=== PATIENT | male | born 1975 | race Caucasian/White ===

== ENCOUNTER 2019-08-01 06:40 | Emergency (ER) | payer SELFPAY ==
[~2019-08-01] VITALS: Ht 162.6 cm; Wt 77.1 kg
[2019-08-01 06:43] VITALS: BP 197/123
--- NOTE | 2019-08-01 06:50 | NUR ---
came in with c/o pain on his scrotum, developed when hes carrying heavy objects, for 3 weeks now.
--- NOTE | 2019-08-01 07:05 | NUR ---
seen and examined by Dr. Barroso
[2019-08-01] MEDS ORDERED: NACL 0.9% 1,000 ML IV ONE (07:15)
[2019-08-01] MEDS ORDERED: KETOROLAC 15 MG/ML VIAL IVP ONE (07:15)
--- NOTE | 2019-08-01 07:17 | NUR ---
receiced bedside report from GIACOMO Salazar for continuation of care
--- NOTE | 2019-08-01 07:19 | NUR ---
lab at bedside
[2019-08-01 07:36] LABS: HEMOGLOBIN 16.7 g/dL (12.0-18.0); RED CELL DISTRIBUTION WIDTH 13.4 % (11.6-13.7)
--- NOTE | 2019-08-01 07:38 | NUR ---
pt left to CT via wheelchair
[2019-08-01 07:48] LABS: BASOPHILS # (AUTO) 0.1 K/uL (0.00-0.22); BASOPHILS % (AUTO) 0.9 % (0.0-2.0); EOSINOPHILS # (AUTO) 0.2 K/uL (0-0.4); EOSINOPHILS % (AUTO) 3.3 % (0.0-4.0); LYMPHOCYTES # (AUTO) 1.7 K/uL (2.0-11.5); LYMPHOCYTES % (AUTO) 30.1 % (20.5-51.1); MEAN CORPUSCULAR HEMOGLOBIN 30 pg (27-31); MEAN CORPUSCULAR HGB CONC 33 g/dL (33-37); MEAN CORPUSCULAR VOLUME 91.5 fL (80-94); MONOCYTES # (AUTO) 0.5 K/uL (0.8-1.0); MONOCYTES % (AUTO) 8.7 % (1.7-9.3); NEUTROPHILS # (AUTO) 3.3 K/uL (1.8-7.7); PLATELET COUNT (AUTO) 251 K/uL (140-450); RED BLOOD CELL COUNT(AUTO) 5.58 MIL/uL (4.20-6.10); WHITE BLOOD COUNT (AUTO) 5.7 K/uL (4.8-10.8)
[2019-08-01 08:09] LABS: ALBUMIN 4.3 g/dL (3.4-5.0); ANION GAP 11.7 (8-16); CARBON DIOXIDE 30.3 mmol/L (21-32); TOTAL BILIRUBIN 0.3 mg/dL (0.0-1.0)
--- NOTE | 2019-08-01 08:40 | NUR ---
DR. BARRIOS AT BEDSIDE TALKING WITH PT
[2019-08-01 08:53] VITALS: BP 161/101
== END 2019-08-01 08:54 | disposition home or self-care (01) ==
LOC: MED 06:40
DX: R22.2 Localized swelling, mass and lump, trunk (principal); R03.0 Elevated blood-pressure reading, without diagnosis of hypertension
CPT/HCPCS: 36415; 72193; 80053; 85025; 96374; 99284; J1885; Q9967